=== PATIENT | female | born 1955 | race Caucasian/White ===

== ENCOUNTER 2020-04-24 09:26 | Outpatient (CLI) | payer BC, SELFPAY ==
--- NOTE | ~2020-04-24 | MM_ITS ---
EXAMINATION: MM screening [facility] BI w charlene HISTORY: Screening mammogram TECHNIQUE: Craniocaudal and mediolateral oblique 3-D tomosynthesis images were obtained and synthetic 2-D images were generated. CAD analysis was submitted and interpreted. COMPARISON: Comparison to multiple prior studies sequentially, with oldest reviewed study dated 2015. BREAST PARENCHYMAL COMPOSITION: The breasts are extremely dense, which lowers the sensitivity of mamm ography. FINDINGS: There is no evidence of suspicious mass, calcification, or architectural distortion to sugg est malignancy in either breast. There has been no suspicious interval change. IMPRESSION: 1. No mammographic evidence of malignancy. 2. Recommend routine screening mammography in one year. BI-RADS Category 1: Negative Reviewed, dictated and finalized at location A.
== END 2020-04-24 09:27 | disposition home or self-care (01) ==
LOC: ANHIMG 09:29
PROVIDERS: PCP Internal Medicine; Visit Provider Obstetrics & Gynecology
DX: Z12.31 Encounter for screening mammogram for malignant neoplasm of breast (principal)
CPT/HCPCS: 77063; 77067

== ENCOUNTER 2020-07-25 12:32 | Outpatient (CLI) | payer BC, SELFPAY ==
[2020-07-25 12:47] LABS: Basophils Percent Auto 0.9 % (0.2-1.2); Eosinophils Percent Auto 0.7 % (0-4.4); Hematocrit 39.9 % (37.0-47.0); Immature Granulocyte Absolute 0.01 K/mm3 (0.00-0.031); Immature Granulocyte Percent A 0.2 % (0-0.5); Lymphocytes Absolute Auto 2.09 K/mm3 (0.9-3.2); Lymphocytes Percent Auto 47.2 % (18.3-44.2); Mean Corpuscular HGB Conc 32.6 g/dl (32-36); Mean Corpuscular Hemoglobin 29.7 pg (26-34); Mean Corpuscular Volume 91.3 fl (80-100); Mean Platelet Volume 8.7 fl (7.4-10.4); Monocytes Absolute Auto 0.5 K/mm3 (0.1-0.6); Monocytes Percent Auto 10.4 % (2.6-8.5); Neutrophils Absolute Auto 1.8 K/mm3 (1.3-6.7); Neutrophils Percent Auto 40.6 % (45.5-73.1); Platelet Count Result 280 k/mm3 (150-375); Red Blood Count 4.37 M/mm3 (4.2-5.4); Red Cell Distribution Width 12.4 % (11.5-14.5); White Blood Count 4.4 K/mm3 (4.5-10.0)
== END 2020-07-25 12:33 | disposition home or self-care (01) ==
LOC: ANHLAB 12:35
PROVIDERS: PCP Internal Medicine; Visit Provider Internal Medicine Hematology & Oncology
DX: D72.820 Lymphocytosis (symptomatic) (principal)
CPT/HCPCS: 36415; 85025

== ENCOUNTER 2021-05-02 14:36 | Outpatient (CLI) | payer BC, SELFPAY ==
--- NOTE | ~2021-05-02 | DEXA_ITS ---
Bone Density Report Name: Jordana Ferrell Age: 65 Sex: Female Ethnicity: White Date of : 1955 Indication: osteopenia; prior fracture; postmenopausal Referring Provider: Susan Hernandez Study: Bone densitometry was performed. Exam Date: May 02, 2021 Accession number: [id number] Bone Density: Region BMD T-score Z-score Classification AP Spine (L1-L4) 0.852 -1.8 0.0 Osteopenia Femoral Neck (Left) 0.843 -0.1 1.4 Normal Total Hip (Left) 0.934 -0.1 1.1 Normal Total Hip Bilateral Avg 0.928 -0.2 1.1 Normal Femoral Neck (Right) 0.815 -0.3 1.2 Normal Total Hip (Right) 0.920 -0.2 1.0 Normal World Health Organization criteria for BMD impression classify patients as: Normal (T-score at or above -1.0), Osteopenia (T-score between -1.0 and -2.5), or Osteoporosis (T-score at or below -2.5). 10-year Fracture Risk: FRAX not reported because: Prior hip or vertebral fracture Previous Exams: Region Exam Age BMD T-score BMD Change BMD Change Date g/cm2 vs Baseline vs Previous AP Spine(L1-L4) 05/02/2021 65 0.852 -1.8 -0.241(-22.0%) -0.008(-0.9%) 04/22/2017 61 0.860 -1.7 -0.233(-21.3%) -0.041(-4.6%)* 04/24/2015 59 0.901 -1.3 -0.192(-17.5%) -0.008(-0.9%)# 04/22/2012 56 0.910 -1.2 -0.183(-16.8%) -0.087(-8.7%)# 04/26/2009 53 0.996 -0.5 -0.097(-8.9%)* -0.097(-8.9%)* 09/14/2002 46 1.093 0.4 Total Hip(Left) 05/02/2021 65 0.934 -0.1 -0.139(-13.0%) -0.020(-2.1%) 04/22/2017 61 0.954 0.1 -0.119(-11.1%) -0.002(-0.3%) 04/24/2015 59 0.957 0.1 -0.116(-10.8%) -0.002(-0.2%)# 04/22/2012 56 0.959 0.1 -0.115(-10.7%) -0.080(-7.7%)# 04/26/2009 53 1.039 0.8 -0.035(-3.2%)* -0.035(-3.2%)* 09/14/2002 46 1.073 1.1 Total Hip(Right) 05/02/2021 65 0.920 -0.2 -0.170(-15.6%) -0.050(-5.2%)* 04/22/2017 61 0.970 0.2 -0.120(-11.0%) 0.001(0.1%) 04/24/2015 59 0.969 0.2 -0.121(-11.1%) 0.040(4.3%)# 04/22/2012 56 0.929 -0.1 -0.161(-14.8%) -0.121(-11.5%) 04/26/2009 53 1.049 0.9 -0.040(-3.7%)* -0.040(-3.7%)* 09/14/2002 46 1.090 1.2 *Denotes significance at 95% confidence level, LSC for AP Spine = 0.022 g/cm2, LSC for Total Hip = 0.027 g/cm2 Clinical Information Provided by Patient: Have had a previous hip or vertebral fracture Has had a low trauma fracture Has used the following medications: Vitamin D, Calcium Patient maximum height was 67.5 Menopause Age: 53 Drinks caffeinated beverages Onset of menses at age 15 Number of children 2
--- NOTE | ~2021-05-02 | MM_ITS ---
EXAMINATION: MM screening [facility] BI w charlene HISTORY: Screening mammogram TECHNIQUE: Craniocaudal and mediolateral oblique 3-D tomosynthesis images were obtained and synthetic 2-D images were generated. CAD analysis was submitted and interpreted. COMPARISON: 04/24/2020, 04/26/2019, 04/26/2018 BREAST PARENCHYMAL COMPOSITION: The breasts are extremely dense, which lowers the sensitivity of mamm ography. FINDINGS: There is no evidence of suspicious mass, calcification, or architectural distortion to sugg est malignancy in either breast. There has been no suspicious interval change. IMPRESSION: 1. No mammographic evidence of malignancy. 2. Recommend routine screening mammography in one year. BI-RADS Category 1: Negative Reviewed, dictated and finalized at location A.
== END 2021-05-02 14:37 | disposition home or self-care (01) ==
LOC: ANHIMG 14:39
PROVIDERS: PCP Internal Medicine; Visit Provider Obstetrics & Gynecology
DX: Z12.31 Encounter for screening mammogram for malignant neoplasm of breast (principal); M85.88 Other specified disorders of bone density and structure, other site
CPT/HCPCS: 77063; 77067; 77080

== ENCOUNTER → 2021-07-23 03:00 | Outpatient (CLI) | payer BC, SELFPAY ==
[2021-07-23 19:51] LABS: SARS-CoV-2 RNA PCR Negative
== END ==
PROVIDERS: PCP Internal Medicine; Visit Provider Internal Medicine Gastroenterology
DX: Z01.812 Encounter for preprocedural laboratory examination (principal); Z20.822 Contact with and (suspected) exposure to COVID-19
CPT/HCPCS: C9803; U0003; U0005

== ENCOUNTER 2021-07-24 13:17 | Outpatient (CLI) | payer BC, SELFPAY ==
[2021-07-24 13:31] LABS: Basophils Absolute Auto 0.1 K/mm3 (0.0-0.1); Basophils Percent Auto 0.7 % (0.2-1.2); Eosinophils Percent Auto 0.3 % (0-4.4); Hematocrit 43.3 % (37.0-47.0); Hemoglobin 13.9 g/dL (12.0-15.0); Immature Granulocyte Absolute 0.02 K/mm3 (0.00-0.031); Immature Granulocyte Percent A 0.3 % (0-0.5); Lymphocytes Absolute Auto 2.73 K/mm3 (0.9-3.2); Lymphocytes Percent Auto 38.5 % (18.3-44.2); Mean Corpuscular HGB Conc 32.1 g/dl (32-36); Mean Corpuscular Hemoglobin 29.5 pg (26-34); Mean Corpuscular Volume 91.9 fl (80-100); Mean Platelet Volume 8.4 fl (7.4-10.4); Monocytes Absolute Auto 0.5 K/mm3 (0.1-0.6); Monocytes Percent Auto 6.6 % (2.6-8.5); Neutrophils Absolute Auto 3.8 K/mm3 (1.3-6.7); Neutrophils Percent Auto 53.6 % (45.5-73.1); Platelet Count Result 317 k/mm3 (150-375); Red Blood Count 4.71 M/mm3 (4.2-5.4); Red Cell Distribution Width 12.1 % (11.5-14.5); White Blood Count 7.1 K/mm3 (4.5-10.0)
== END 2021-07-24 13:18 | disposition home or self-care (01) ==
LOC: ANHLAB 13:20
PROVIDERS: PCP Internal Medicine; Visit Provider Internal Medicine Hematology & Oncology
DX: D72.820 Lymphocytosis (symptomatic) (principal)
CPT/HCPCS: 36415; 85025

== ENCOUNTER 2021-07-26 00:18 | Day surgery (SDC) | payer BC, SELFPAY ==
[2021-07-16 15:38] VITALS: BMI 19.6
[2021-07-26 06:52] VITALS: BP 119/83; PULSE 79; RESP 20; TEMP 36.7; O2SAT 100; BMI 18.8
[2021-07-26] MEDS: LACTATED RINGERS 1,000 ML 150 ML IV CONT (07:01)
--- NOTE | 2021-07-26 07:04 | WPDANESEPPF ---
Anes - Initial Pre Proc Eval Procedure: Operation Date: 07/26/21 08:00 Proposed Procedures p Screening Colonoscopy - Kip Carballo MD Date/Time: 07/26/21 07:04 Surgeon: Kip Carballo MD Pre Op Diagnosis: family hx colon ca, neoplasm screening Patient Data Age: 65 Gender: F Height: 1.7 m Weight: 54.6 kg Last Vital Signs Temp 36.7 C 07/26/21 06:52 Pulse 79 07/26/21 06:52 Resp 20 07/26/21 06:52 BP 119/83 07/26/21 06:52 Pulse Ox 100 07/26/21 06:52 Allergies Allergy/AdvReac Type Severity Reaction Status Date / Time No Known Allergies Allergy Verified 07/26/21 06:51 Home Medications Medication Instructions Recorded Confirmed Type calcium citrate 315 mg 1 tablet PO DAILY 07/30/20 07/26/21 History calcium-vitamin D3 6.25 mcg (250 unit) tablet multivitamin 1 tablet PO DAILY 03/04/21 07/26/21 History omega-3 fatty acids 1,000 mg 1,200 mg PO BID cap 03/04/21 07/26/21 History capsule Patient hx anesthesia problems: none Family hx anesthesia problems: none PMFSH Past Medical History Medical History Adult BMI 19-24 kg/sq m Colon cancer screening Dyslipidemia Encounter for preventive health examination Encounter for routine adult health examination without abnormal findings Hearing loss Lymphocytosis Personal history of COVID-19 Family History Family History Mother Hypertension Family history of elevated blood lipids Family history of kidney disease Father Family history of elevated blood lipids Malignant neoplasm of prostate Family history of atrial fibrillation Social History Social History Smoking status: Never smoker Second hand tobacco smoke exposure: No Alcohol intake: current Drinks per week: 5 Living arrangements: with family Spiritual care concerns: No Anes - Eval Final PreProcedure Day of Procedure 07/26/21 07:04 Patient weight: normal Heart: regular rate and rhythm Lungs: clear to auscultation Airway: Mallampati scale class 1 Neurological: alert and oriented Last oral intake: >/= 8 hours ASA classification: I Emergent: no Anesthetic plan: proceed Anesthesia type and monitoring: general GIVS and standard monitoring Informed Consent: The patient's anesthetic plan and its attendant risks and benefits were discussed with the patient/family/POA. Questions were solicited and answers provided to the satisfaction of the patient/family/POA.
--- NOTE | 2021-07-26 07:20 | P.CONGI_ITS ---
Assessment and Plan Assessment and plan (1) Colon cancer screening: Code(s): Z12.11 - Encounter for screening for malignant neoplasm of colon Status: Acute Assessment and Plan: Patient presents for neoplasia screening. Family history is significant that her sister has colon polyps and for this reason follow-up colonoscopy is been advised 5 year intervals. GI Consult Note Consult date/time: 07/26/21 07:20 HPI: Jordana Ferrell is a 65 year old female Presents for screening col onoscopy. Patient reports that her current weight appetite bowel movements are normal. She denies abdominal pain. She has had no bleeding. Family history is significant that her sister has had colon polyps. Patient reports that her own last colonoscopy was 5 years ago. Patient denies any blood in her stools. She states her bowel habits are normal. Review of Systems Review of Systems: All systems reviewed & are unremarkable except as noted in HPI and below PMFSH Past Medical History Medical History Adult BMI 19-24 kg/sq m Colon cancer screening Dyslipidemia Encounter for preventive health examination Encounter for routine adult health examination without abnormal findings Hearing loss Lymphocytosis Personal history of COVID-19 Family History Family History Mother Hypertension Family history of elevated blood lipids Family history of kidney disease Father Family history of elevated blood lipids Malignant neoplasm of prostate Family history of atrial fibrillation Social History Social History Smoking status: Never smoker Second hand tobacco smoke exposure: No Alcohol intake: current Drinks per week: 5 Living arrangements: with family Spiritual care concerns: No Meds Home Medications and Allergies Home Medications Medication Instructions Recorded Confirmed Type calcium citrate 315 mg 1 tablet PO DAILY 07/30/20 07/26/21 History calcium-vitamin D3 6.25 mcg (250 unit) tablet multivitamin 1 tablet PO DAILY 03/04/21 07/26/21 History omega-3 fatty acids 1,000 mg 1,200 mg PO BID cap 03/04/21 07/26/21 History capsule Allergies Allergy/AdvReac Type Severity Reaction Status Date / Time No Known Allergies Allergy Verified 07/26/21 06:51 Vital Signs Vital Signs - 24 hr 07/26/21 06:52 Temperature 98.0 F Pulse Rate 79 Respiratory Rate 20 Blood Pressure 119/83 Pulse Oximetry 100 Exam Narrative: Physical exam reveals patient be alert. Vital signs stable. HEENT exam is unremarkable. Lungs are clear to auscultation and percussion. Heart is without murmur or extra sounds. Abdominal exam bowel sounds are present soft nontender with no organomegaly. Digital external rectal exam is normal.
[2021-07-26 08:21] VITALS: BP 80/49; PULSE 54; RESP 21; O2SAT 100
[2021-07-26 08:31] VITALS: BP 86/50; PULSE 50; RESP 22; O2SAT 99
[2021-07-26 08:41] VITALS: BP 89/59; PULSE 53; RESP 19; O2SAT 100
== END 2021-07-26 08:55 | disposition home or self-care (01) ==
PROVIDERS: PCP Internal Medicine; Visit Provider Internal Medicine Gastroenterology
PROC: 0DJD8ZZ Inspection of Lower Intestinal Tract, Via Natural or Artificial Opening Endoscopic (ICD-10-PCS; CPT 45378; principal; 2021-07-26 08:00)
DX: Z12.11 Encounter for screening for malignant neoplasm of colon (principal); K64.8 Other hemorrhoids; E78.5 Hyperlipidemia, unspecified; Z86.16 Personal history of COVID-19
CPT/HCPCS: 45378; J2704; J7120

== ENCOUNTER 2022-04-28 08:31 | Outpatient (CLI) | payer MEDICARE, OTHER, SELFPAY ==
--- NOTE | ~2022-04-28 | MM_ITS ---
EXAMINATION: MM screening [facility] BI w charlene HISTORY: Screening TECHNIQUE: Craniocaudal and mediolateral oblique 3-D tomosynthesis images were obtained and synthetic 2-D images were generated. CAD analysis was submitted and interpreted. COMPARISON: Comparison to multiple prior studies sequentially, with oldest reviewed study dated 07/2016. BREAST PARENCHYMAL COMPOSITION: The breasts are extremely dense, which lowers the sensitivity of mamm ography FINDINGS: There is no evidence of suspicious mass, calcification, or architectural distortion to sugg est malignancy in either breast. There has been no suspicious interval change. IMPRESSION: 1. No mammographic evidence of malignancy. 2. Recommend routine screening mammography in one year. BI-RADS Category 1: Negative Reviewed, dictated and finalized at location A.
== END 2022-04-28 08:32 | disposition home or self-care (01) ==
PROVIDERS: PCP Internal Medicine; Visit Provider Obstetrics & Gynecology
DX: Z12.31 Encounter for screening mammogram for malignant neoplasm of breast (principal)
CPT/HCPCS: 77063; 77067

== ENCOUNTER 2022-10-29 10:54 | Outpatient (CLI) | payer MEDICARE, OTHER, SELFPAY | END 2022-10-29 10:55 | disposition home or self-care (01) | LOC: ANHAUDIO 10:55 | PROVIDERS: PCP Internal Medicine; Visit Provider Otolaryngology | DX: H90.3 Sensorineural hearing loss, bilateral (principal) | CPT/HCPCS: 92557; 92567 ==

== ENCOUNTER 2023-07-23 14:49 | Outpatient (CLI) | payer MEDICARE, OTHER, SELFPAY ==
--- NOTE | ~2023-07-23 | DEXA_ITS ---
Bone Density Report Name: RAJENDRA GIBBS Age: 67 Sex: Female Ethnicity: White Date of : 1955 Indication: osteopenia; postmenopausal Referring Provider: GLADIS, CHEY Mendoza Study: Bone densitometry was performed. Exam Date: July 23, 2023 Accession number: [id number] Bone Density: Region BMD T-score Z-score Classification AP Spine(L1-L4) 0.858 -1.7 0.2 Osteopenia Femoral Neck (Left) 0.848 0.0 1.6 Normal Total Hip (Left) 0.918 -0.2 1.1 Normal Femoral Neck (Right) 0.847 0.0 1.6 Normal Total Hip (Right) 0.947 0.0 1.4 Normal Total Hip Mean 0.933 -0.1 1.3 Normal World Health Organization criteria for BMD impression classify patients as: Normal (T-score at or above -1.0), Osteopenia (T-score between -1.0 and -2.5), or Osteoporosis (T-score at or below -2.5). 10-year Fracture Risk(1): Major Osteoporotic Fracture 6.0% Hip Fracture 0.3% Reported Risk Factors: [place] (), Neck BMD=0.848, BMI=19.8 (1) FRAX(R) Version 3.08. Fracture probability calculated for an untreated patient. Fracture probability may be lower if the patient has received treatment. Previous Exams: Region Exam Age BMD T-score BMD Change BMD Change Date g/cm2 vs Baseline vs Previous AP Spine (L1-L4) 07/23/2023 67 0.858 -1.7 -0.051 (-5.6%) 0.006 (0.8%) 05/02/2021 65 0.852 -1.8 -0.058 (-6.3%) -0.008 (-0.9%) 04/22/2017 61 0.860 -1.7 -0.050 (-5.5%) -0.041 (-4.6%) 04/24/2015 59 0.901 -1.3 -0.008 (-0.9%) -0.008 (-0.9%) 04/22/2012 56 0.910 -1.2 Total Hip(Left) 07/23/2023 67 0.918 -0.2 -0.041 (-4.2%) -0.016 (-1.7%) 05/02/2021 65 0.934 -0.1 -0.025 (-2.6%) -0.020 (-2.1%) 04/22/2017 61 0.954 0.1 -0.004 (-0.4%) -0.002 (-0.3%) 04/24/2015 59 0.957 0.1 -0.002 (-0.2%) -0.002 (-0.2%) 04/22/2012 56 0.959 0.1 Total Hip(Right) 07/23/2023 67 0.947 0.0 0.019 (2.0%)# 0.028 (3.0%)* 05/02/2021 65 0.920 -0.2 -0.009 (-1.0%) -0.050 (-5.2%) 04/22/2017 61 0.970 0.2 0.041 (4.4%)# 0.001 (0.1%) 04/24/2015 59 0.969 0.2 0.040 (4.3%)# 0.040 (4.3%)# 04/22/2012 56 0.929 -0.1 *Denotes significance at 95% confidence level, LSC for AP Spine = 0.022 g/cm2, LSC for Total Hip = 0.027 g/cm2 # Denotes dissimilar scan types or analysis methods Clinical Information Provided by Patient: Has used the following medications: Vitamin D, Calcium Patient maximum height was 67 Menopause Age: 61 Drinks caffeinated beverages Onset o
--- NOTE | ~2023-07-23 | MM_ITS ---
EXAMINATION: MM screening [facility] BI w charlene HISTORY: Screening mammogram TECHNIQUE: Craniocaudal and mediolateral oblique 3-D tomosynthesis images were obtained and synthetic 2-D images were generated. CAD analysis was submitted and interpreted. COMPARISON: 04/28/2022, 05/02/2021, 05/04/2020 bilateral screening mammogram examinations BREAST PARENCHYMAL COMPOSITION: The breasts are extremely dense, which lowers the sensitivity of mamm ography. FINDINGS: There is no evidence of suspicious mass, calcification, or architectural distortion to sugg est malignancy in either breast. There has been no suspicious interval change. IMPRESSION: 1. No mammographic evidence of malignancy. 2. Recommend routine screening mammography in one year. BI-RADS Category 1: Negative Reviewed, dictated and finalized at location A.
== END 2023-07-23 14:50 | disposition home or self-care (01) ==
PROVIDERS: PCP Internal Medicine; Visit Provider Nurse Practitioner Obstetrics & Gynecology
DX: Z12.31 Encounter for screening mammogram for malignant neoplasm of breast (principal); M85.80 Other specified disorders of bone density and structure, unspecified site; Z78.0 Asymptomatic menopausal state
CPT/HCPCS: 77063; 77067; 77080

== ENCOUNTER 2025-10-03 10:50 | Emergency (ER) | payer MEDICARE, OTHER, SELFPAY ==
--- NOTE | 2025-10-03 10:54 | ED.URI ---
HPI - URI/Sore Throat General Chief Complaint: Upper Respiratory Infection Stated Complaint: Cough Time Seen by Provider: 10/03/25 11:22 Source: patient, RN notes reviewed and old records reviewed Mode of arrival: ambulatory Limitations: no limitations History of Present Illness HPI Narrative: 69-year-old female presents to the [facility] with a progressive worsening cough, congestion, sore throat, diarrhea and headache that started Thursday, 8 days ago. has tried multiple [id number] products with no relief. States that he even tried a leftover albuterol inhaler which has not helped. Related Data Home Medications ?Medication ?Instructions ?Recorded ?Confirmed ?Last Taken ?Type calcium 315 mg (as 1 tablet PO DAILY 07/30/20 10/03/25 07/25/21 History citrate)-vitamin D3 6.25 mcg (250 unit) tablet multivitamin 1 tablet PO DAILY 03/04/21 10/03/25 Unknown History omega-3 fatty acids 1,000 mg 1,200 mg PO BID 03/04/21 10/03/25 07/25/21 History capsule (Fish Oil Concentrate) Allergies Allergy/AdvReac Type Severity Reaction Status Date / Time No Known Allergies Allergy Verified 10/03/25 11:09 Review of Systems Review of Systems: All systems reviewed & are unremarkable except as noted in HPI and below Constitutional: Constitutional: Reports no additional constitutional complaints ENT: Reports as per HPI Cardiovascular: Cardiovascular: Reports no additional cardiovascular complaints, Denies chest pain and Denies dyspnea Respiratory: Respiratory: Reports as per HPI, Denies chest congestion, Reports cough and Denies dyspnea Musculoskeletal: Musculoskeletal: Reports no additional musculoskeletal complaints Integumentary/Breasts: Skin/Breast: Reports system reviewed and no additional complaints, except as docu PMFSH Past Medical History Medical History FHx: colonic polyps Personal history of COVID-19 Encounter for routine adult health examination without abnormal findings Hearing loss Lymphocytosis Dyslipidemia Adult BMI 19-24 kg/sq m Family History Family History Mother Hypertension Family history of elevated blood lipids Family history of kidney disease Father Family history of elevated blood lipids Malignant neoplasm of prostate Family history of atrial fibrillation Social History Social History (Reviewed 10/03/25 @ 18:53 by LINDA De La Rosa Smoking status: Never smoker Second hand tobacco smoke exposure: No Alcohol intake: current Drinks per week: 5 Lack of Transportation: No Lack of Food: Never True Current Housing: I Have Housing Concerned About Future Housing: No Difficulty Paying Gas/Electric Bills: No Difficulty Paying for Meds: No Currently Unemployed: No Education: Bachelor's Degree Difficulty w/ Childcare or Family Care: No Living arrangements: with family Spiritual care concerns: No Comments At the time of my signature, I reviewed and agree with the nursing past medical, surgical, social, and family history. There is no relevant family history pertinent to the patient complaint. Exam Const: General: cooperative, healthy appearing, comfortable, no acute distress, well developed, alert and well nourished Nutritional Appearance: well nourished Orientation/consciousness: patient oriented x3 Limitations: no limitations HENMT: Head: normal to inspection Ears: hearing grossly normal bilaterally, external ears normal, TM's normal bilaterally, EAC's normal, mastoids normal and no periauricular adenopathy Mouth: Yes Normal oral and palatal mucosa present, Yes lip normal, Yes tongue normal and Yes moist mucous membranes Throat: posterior oropharynx normal, uvula midline, postnasal drainage and no uvular edema Eyes: General: appearance normal, both eyes and all related structures Alignment and Position: alignment normal Neck: Neck: normal visual inspection, full ROM, no lymphadenopathy and no meningeal signs Chest: Chest palpation & inspection: normal inspection of the chest Resp: Effort & Inspection: normal respiratory effort and able to speak in complete sentences Auscultation: clear to auscultation bilaterally, no crackles, no rales, no rhonchi and wheezes ( end-expiratory left lower, mild) Cardio: Rate: regular rate Skin: General skin exam: normal color and no rashes or lesions noted Neuro: General: patient oriented x3, gait normal, moves all extremities and no meningeal signs Cognition (Neuro): normal cognition Speech: normal speech Gait exam (Neuro): Normal gait present Extrem: General: normal to inspection, full ROM, capillary refill normal and normal gait Psych: Appearance: grossly normal and well kempt Mental Status: mental status grossly normal Speech and movement: Normal speech and movement present and Clear speech present Affect: normal affect Attitude: cooperative Course Course Level of Care: Express Care Visit Vital Signs Vital signs: Vital Signs Temperature 98.0 F 10/03/25 11:00 Pulse Rate 63 10/03/25 11:00 Respiratory Rate 16 10/03/25 11:00 Blood Pressure 116/76 10/03/25 11:00 Pulse Oximetry 99 10/03/25 11:00 Oxygen Delivery Room Air 10/03/25 11:00 Temperature 98.0 F 10/03/25 11:00 Pulse Rate 63 10/03/25 11:00 Respiratory Rate 16 10/03/25 11:00 Blood Pressure 116/76 10/03/25 11:00 Pulse Oximetry 99 10/03/25 11:00 Oxygen Delivery Room Air 10/03/25 11:00 Reviewed MDM - URI/Sore Throat MDM Narrative Medical decision making narrative: patient sitting in exam room. Patient is nontoxic, vitals stable. Patient presents with cough, congestion, sore throat, diarrhea and headache without abdominal pain or fevers. States it has been progressively getting worse over the last 8 days. Has tried multiple inwr-hui-qjkrycu products with no relief. Flu COVID strep were negative. Patient is appropriate for outpatient treatment with close follow-up Discharge instructions reviewed with patient, as well as provided in writing per nursing staff. The instructions also include specific and strict return/GO TO THE ER as well as f/u information. All questions have been answered, and the patient deny any further questions with discharge and discharge plan. Some parts of this dictation were generated by voice recognition software and may contain typographical and/or grammatical inaccuracies. Differential Diagnosis Differential diagnosis: Likely upper respiratory infection, otitis media, sinusitis, viral infection, bronchitis, influenza and pharyngitis Lab Data Labs: Lab Results 10/03/25 Range/Units 11:19 POC Influenza A Ag Negative (Negative) POC Influenza B Ag Negative (Negative) POC SARS CoV-2 Ag Negative (Negative) POC Grp A Strep Screen Negative (Negative) reviewed Critical Care Time Critical Care Time Critical Care Time: No Discharge Plan Discharge Clinical Impression: Bronchitis Patient Disposition: Home Condition: Stable Instructions: Antibiotic Form, Acute Bronchitis (ED) Additional Instructions: Your rapid strep swab was negative today at [facility]. A throat culture will be sent to the laboratory for further testing. If the test is positive, you will receive a phone call within 48 hours and an appropriate antibiotic will be initiated at that time. Your rapid COVID test were negative Your rapid flu test was negative It is very important to treat your symptoms. Drink plenty of water, Gatorade, Pedialyte, ice pops or Jell-O. -Alternate Tylenol and Motrin per package directions for fever or pain. You can alternate every 4 hours -Antihistamine medication such as Zyrtec/Claritin/Cindy during the day can help improve symptoms. -doing daily nasal irrigations can help relieve pressure your sinuses. Things like a Neti pot -Use Flonase twice a day for 5 days then daily to help reduce the inflammation and dry up your sinuses. -You can also use Mucinex. Be sure to drink plenty of water with this medication at least 8 ounces with every dose and it is important to drink 8 to 10 glasses of water per day. Water is a natural decongestant -Eat and drink things that are easy to swallow, like tea or soup, or popsicles. -Oral rinses such as: Salt water gargles and/or may use topical anesthetic (eg. Chloraseptic spray) or lozenges to relieve dryness or throat pain). -Frequent hand washing or hand proj engineer is one of the best ways to prevent spread of infection. -Using a vaporizer or humidifier at night will also help thin secretions and help with coughing up phlegm. -Follow up with primary care provider in 7-10 days if condition is not improving - For new or worsening symptoms go directly to the nearest ER Patient Language: Czech Prescriptions: New doxycycline monohydrate 100 mg tablet 100 mg PO BID Qty: 14 0RF benzonatate 100 mg capsule 100 mg PO TID PRN (Reason: cough) Qty: 10 0RF albuterol sulfate 90 mcg/actuation HFA aerosol inhaler 2 puff inhalation QID PRN (Reason: shortness of breath or wheezing) Qty: 6.7 0RF (DME) Aerochamber MV Spacer See Rx Instructions .Route Qty: 1 0RF Rx Instructions: As directed No Action multivitamin Tablet 1 tablet PO DAILY omega-3 fatty acids [Fish Oil Concentrate] 1,000 mg capsule 1,200 mg PO BID calcium citrate-vitamin D3 315 mg- 250 unit tablet 1 tablet PO DAILY Follow-up/Referrals: PHYSICIAN,EXTRUSION MACHINE OPERATOR [Primary Care Provider, Internal Medicine] Time of Disposition: 11:36
[2025-10-03 11:00] VITALS: BP 116/76; PULSE 63; RESP 16; TEMP 36.7; O2SAT 99
[2025-10-03 11:21] LABS: EDCOVIDSCREEN Negative (Negative); EDINFLUASCREEN Negative (Negative); EDINFLUBSCREEN Negative (Negative); EDSTREPNEGPOS1 Negative (Negative)
== END 2025-10-03 11:40 | disposition home or self-care (01) ==
PROVIDERS: Emergency Provider Nurse Practitioner
DX: J40 Bronchitis, not specified as acute or chronic (principal); Z20.822 Contact with and (suspected) exposure to COVID-19; E78.5 Hyperlipidemia, unspecified; Z86.16 Personal history of COVID-19
CPT/HCPCS: 87081; 87426; 87804; 87880; 99213; G0463

== ENCOUNTER 2025-10-10 08:48 | Emergency (ER) | payer MEDICARE, OTHER, SELFPAY ==
[2025-10-10 08:57] VITALS: BP 113/80; PULSE 62; RESP 16; TEMP 36.1; O2SAT 100
--- NOTE | 2025-10-10 09:18 | ED_ITS ---
HPI - URI/Sore Throat General Chief Complaint: Upper Respiratory Infection Stated Complaint: COUGH Time Seen by Provider: 10/10/25 09:24 Source: patient, RN notes reviewed and old records reviewed Mode of arrival: ambulatory Limitations: no limitations History of Present Illness HPI Narrative: 69-year-old female presents to the [facility] with a continued cough. Was seen 1 week ago with a cough for 8 days. Had been prescribed doxycycline, Tessalon Perles and albuterol. Patient reports that cough continues. Denies chest pain, leg swelling, shortness of breath. Denies fevers. Onset (ago): day(s) () Related Data Home Medications ?Medication ?Instructions ?Recorded ?Confirmed ?Last Taken ?Type calcium 315 mg (as 1 tablet PO DAILY 07/30/20 1 12/03/24 07/25/21 History citrate)-vitamin D3 6.25 mcg (250 unit) tablet multivitamin 1 tablet PO DAILY 03/04/21 1 12/03/24 Unknown History omega-3 fatty acids 1,000 mg 1,200 mg PO BID 03/04/21 10/03/25 07/25/21 History capsule (Fish Oil Concentrate) Allergies Allergy/AdvReac Type Severity Reaction Status Date / Time No Known Allergies Allergy Verified 10/10/25 09:02 Review of Systems Review of Systems: All systems reviewed & are unremarkable except as noted in HPI and below Constitutional: Constitutional: Reports no additional constitutional complaints ENT: Reports system reviewed and no additional complaints, except as documented Cardiovascular: Cardiovascular: Reports no additional cardiovascular complaints, Denies chest pain and Denies dyspnea Respiratory: Respiratory: Reports as per HPI, Denies chest congestion, Reports cough and Denies dyspnea Musculoskeletal: Musculoskeletal: Reports no additional musculoskeletal complaints Integumentary/Breasts: Skin/Breast: Reports system reviewed and no additional complaints, except as docu PMFSH Past Medical History Medical History (Updated 10/10/25 @ 09:45 by Lula Larry APRN) Acute bronchitis Cough FHx: colonic polyps Personal history of COVID-19 Encounter for routine adult health examination without abnormal findings Hearing loss Lymphocytosis Dyslipidemia Adult BMI 19-24 kg/sq m Family History Family History Mother Hypertension Family history of elevated blood lipids Family history of kidney disease Father Family history of elevated blood lipids Malignant neoplasm of prostate Family history of atrial fibrillation Social History Social History Smoking status: Never smoker Second hand tobacco smoke exposure: No Alcohol intake: current Drinks per week: 5 Lack of Transportation: No Lack of Food: Never True Current Housing: I Have Housing Concerned About Future Housing: No Difficulty Paying Gas/Electric Bills: No Difficulty Paying for Meds: No Currently Unemployed: No Education: Bachelor's Degree Difficulty w/ Childcare or Family Care: No Living arrangements: with family Spiritual care concerns: No Comments At the time of my signature, I reviewed and agree with the nursing past medical, surgical, social, and family history. There is no relevant family history pertinent to the patient complaint. Exam Const: General: cooperative, healthy appearing, comfortable, no acute distress, well developed, alert and well nourished Nutritional Appearance: well nourished Orientation/consciousness: patient oriented x3 Limitations: no limitations HENMT: Head: normal to inspection Ears: hearing grossly normal bilaterally, external ears normal, TM's normal bilaterally, EAC's normal, mastoids normal and no periauricular adenopathy Mouth: Yes Normal oral and palatal mucosa present, Yes lip normal, Yes tongue normal and Yes moist mucous membranes Throat: posterior oropharynx normal, uvula midline and no uvular edema Eyes: General: appearance normal, both eyes and all related structures Alignment and Position: alignment normal Neck: Neck: normal visual inspection, full ROM, no lymphadenopathy and no meningeal signs Chest: Chest palpation & inspection: normal inspection of the chest Resp: Effort & Inspection: normal respiratory effort and able to speak in complete sentences Auscultation: clear to auscultation bilaterally, no crackles, no rales, no rhonchi and no wheezes Cardio: Rate: regular rate Skin: General skin exam: normal color and no rashes or lesions noted Neuro: General: patient oriented x3, gait normal, moves all extremities and no meningeal signs Cognition (Neuro): normal cognition Speech: normal speech Gait exam (Neuro): Normal gait present Extrem: General: normal to inspection, full ROM, capillary refill normal and normal gait Psych: Appearance: grossly normal and well kempt Mental Status: mental status grossly normal Speech and movement: Normal speech and movement present and Clear speech present Affect: normal affect Attitude: cooperative Course Course Level of Care: Express Care Visit Vital Signs Vital signs: Vital Signs Temperature 96.9 F L 10/10/25 08:57 Pulse Rate 62 10/10/25 08:57 Respiratory Rate 16 10/10/25 08:57 Blood Pressure 113/80 10/10/25 08:57 Pulse Oximetry 100 10/10/25 08:57 Temperature 96.9 F L 10/10/25 08:57 Pulse Rate 62 10/10/25 08:57 Respiratory Rate 16 10/10/25 08:57 Blood Pressure 113/80 10/10/25 08:57 Pulse Oximetry 100 10/10/25 08:57 Reviewed MDM - URI/Sore Throat MDM Narrative Medical decision making narrative: Patient sitting in exam room. Presents with with continued cough. Patient denies changes after being prescribed albuterol, Tessalon Perles and doxycycline. Chest x-ray offered, patient declined. Discussed with patient in her sometimes a viral bronchitis can last for weeks if not months. Patient is appropriate for outpatient treatment with prednisone, cough medicine sent. Discussed importance of following up with primary care provider discussed signs and symptoms to proceed to the emergency room which she verbalized understanding. Discharge instructions reviewed with patient, as well as provided in writing per nursing staff. The instructions also include specific and strict return/GO TO THE ER as well as f/u information. All questions have been answered, and the patient deny any further questions with discharge and discharge plan. Some parts of this dictation were generated by voice recognition software and may contain typographical and/or grammatical inaccuracies. Differential Diagnosis Differential diagnosis: Likely upper respiratory infection, otitis media, sinusitis, viral infection, bronchitis, influenza and pharyngitis Critical Care Time Critical Care Time Critical Care Time: No Discharge Plan Discharge Clinical Impression: Cough, Bronchitis Patient Disposition: Home Condition: Stable Instructions: Acute Cough (ED) Additional Instructions: It is very important to treat your symptoms. Drink plenty of water, Gatorade, Pedialyte, ice pops or Jell-O. unfortunately some viral coughs are lasting several weeks if not a couple of months. If you develop chest pain, significant shortness of breath please proceed to the nearest emergency room for further evaluation, testing and treatment -Alternate Tylenol and Motrin per package directions for fever or pain. You can alternate every 4 hours -Antihistamine medication such as Zyrtec/Claritin/Cindy during the day can help improve symptoms. -doing daily nasal irrigations can help relieve pressure your sinuses. Things like a Neti pot -Use Flonase twice a day for 5 days then daily to help reduce the inflammation and dry up your sinuses. -You can also use Mucinex. Be sure to drink plenty of water with this medication at least 8 ounces with every dose and it is important to drink 8 to 10 glasses of water per day. Water is a natural decongestant -Eat and drink things that are easy to swallow, like tea or soup, or popsicles. -Oral rinses such as: Salt water gargles and/or may use topical anesthetic (eg. Chloraseptic spray) or lozenges to relieve dryness or throat pain). -Frequent hand washing or hand cocoa roaster is one of the best ways to prevent spread of infection. -Using a vaporizer or humidifier at night will also help thin secretions and help with coughing up phlegm. -Follow up with primary care provider in 7-10 days if condition is not improving - For new or worsening symptoms go directly to the nearest ER Patient Language: Tamazight Prescriptions: New prednisone 50 mg tablet 50 mg PO DAILY Qty: 5 0RF codeine-guaifenesin [Guaifenesin AC] 10-100 mg/5 mL liquid 5 ml PO Q6H PRN (Reason: cough) Qty: 120 0RF No Action albuterol sulfate 90 mcg/actuation HFA aerosol inhaler 2 puff inhalation QID PRN (Reason: shortness of breath or wheezing) Qty: 6.7 0RF (DME) Aerochamber MV Spacer See Rx Instructions .Route Qty: 1 0RF Rx Instructions: As directed multivitamin Tablet 1 tablet PO DAILY omega-3 fatty acids [Fish Oil Concentrate] 1,000 mg capsule 1,200 mg PO BID calcium citrate-vitamin D3 315 mg- 250 unit tablet 1 tablet PO DAILY Follow-up/Referrals: Hima,Rachel [Other] - 1 Week Clinical Impression: Cough Time of Disposition: 09:45
== END 2025-10-10 09:48 | disposition home or self-care (01) ==
PROVIDERS: Emergency Provider Nurse Practitioner
DX: R05.9 Cough, unspecified (principal); J40 Bronchitis, not specified as acute or chronic; E78.5 Hyperlipidemia, unspecified; Z86.16 Personal history of COVID-19
CPT/HCPCS: 99213; G0463